=== PATIENT | male | born 1960 | race Caucasian/White ===

== ENCOUNTER 2020-09-17 15:20 | Emergency (ER) | payer SELFPAY | END 2020-09-17 16:32 | disposition left against medical advice (07) | LOC: ER 15:21 | DX: M25.473 Effusion, unspecified ankle (principal); Z53.21 Procedure and treatment not carried out due to patient leaving prior to being seen by health care provider ==

== ENCOUNTER 2022-05-05 07:33 | Emergency (ER) | payer MEDICAID ==
[~2022-05-05] VITALS: Ht 182.9 cm; Wt 71.0 kg
[2022-05-05 09:00] VITALS: BP 145/93
== END 2022-05-05 10:33 | disposition left against medical advice (07) ==
LOC: ER 07:34
DX: M79.604 Pain in right leg (principal); Z53.21 Procedure and treatment not carried out due to patient leaving prior to being seen by health care provider
CPT/HCPCS: 99281; 99291

== ENCOUNTER 2023-10-02 01:48 | Emergency (ER) | payer MEDICAID ==
[~2023-10-02] VITALS: Ht 182.9 cm; Wt 77.3 kg
[2023-10-02] MEDS ORDERED: NAPR-56 PO (02:14)
[2023-10-02] MEDS ORDERED: CYCL-1 PO (02:16)
[2023-10-02] MEDS: naproxen 500mg tablet PO ONE (02:28)
[2023-10-02] MEDS: cyclobenzaprine 10mg tablet PO ONE (02:28)
[2023-10-02 02:29] VITALS: BP 163/101; PULSE 85; RESP 17; TEMP 98.1; O2SAT 98
== END 2023-10-02 02:31 | disposition home or self-care (01) ==
LOC: ER 01:48
DX: K40.90 Unilateral inguinal hernia, without obstruction or gangrene, not specified as recurrent (principal); M54.50 Low back pain, unspecified; I10 Essential (primary) hypertension; Z98.890 Other specified postprocedural states; Z72.89 Other problems related to lifestyle; Z88.8 Allergy status to other drugs, medicaments and biological substances; Z79.899 Other long term (current) drug therapy; Z79.1 Long term (current) use of non-steroidal anti-inflammatories (NSAID)
CPT/HCPCS: 99284

== ENCOUNTER 2024-05-28 06:53 | Day surgery (SDC) | payer MEDICAID ==
[2024-05-23 14:51] LABS: BASOPHILS # (AUTO) 0.1 X10'3 (0-0.2); BASOPHILS % (AUTO) 1.5 % (0-1); EOSINOPHILS # (AUTO) 0.2 X10'3 (0-0.9); EOSINOPHILS % (AUTO) 2.6 % (0-6); LYMPHOCYTES # (AUTO) 2.8 X10'3 (1.1-4.8); LYMPHOCYTES % (AUTO) 39.9 % (21-51); MEAN CORPUSCULAR HEMOGLOBIN 30.3 PG (27.0-31.0); MEAN CORPUSCULAR HGB CONC 33.1 g/dL (33.0-36.5); MEAN CORPUSCULAR VOLUME 91.6 FL (78-98); MEAN PLATELET VOLUME 7.5 FL (7.4-10.4); MONOCYTES # (AUTO) 1.1 X10'3 (0-0.9); MONOCYTES % (AUTO) 15.4 % (2-12); NEUTROPHILS # (AUTO) 2.8 X10'3 (1.8-7.7); NEUTROPHILS % (AUTO) 40.6 % (42-75); PRE OP HEMATOCRIT 47.3 % (42.0-52.0); PRE OP HEMOGLOBIN 15.6 g/dL (14.0-17.9); PRE OP PLATELET COUNT 354 X10'3 (140-440); RED BLOOD COUNT 5.17 X10'6 (4.70-6.10); RED CELL DISTRIBUTION WIDTH 13.7 % (11.5-14.5)
[2024-05-23 15:13] LABS: BLOOD UREA NITROGEN 27 MG/DL (7-18); BUN/CREATININE RATIO 26.7 (10.0-20.0); CHLORIDE 105 MMOL/L (99-107); CREATININE 1.01 MG/DL (0.60-1.10); PRE OP ANION GAP 11 (8-16); PRE OP GLUCOSE 104 MG/DL (70-104); PRE OP POTASSIUM 4.1 MMOL/L (3.4-5.1); PRE OP SODIUM 142 MMOL/L (135-145); TOTAL CARBON DIOXIDE 26.5 MMOL/L (24-32)
[2024-05-23 15:14] LABS: ALBUMIN 3.9 G/DL (3.4-5.0); ALKALINE PHOSPHATASE 79 IU/L (46-116); CALCIUM 9.1 MG/DL (8.5-10.1); PRE OP ALT 23 U/L (30-65); PRE OP AST 15 U/L (10-37); PRE OP BILIRUB, TOTAL 0.4 MG/DL (0.0-1.0); TOTAL PROTEIN 7.7 G/DL (6.4-8.2); eGFR 75 ML/MIN
[2024-05-23 15:18] LABS: PLATELET ESTIMATE NORMAL; TOTAL CELLS COUNTED 100
[~2024-05-28] VITALS: Ht 180.3 cm; Wt 79.2 kg
[2024-05-28] VITALS (15 sets, daily range): BP systolic 125–154; BP diastolic 81–98; PULSE 67–85; RESP 13–18; TEMP 98.5; O2SAT 94–100
[2024-05-28] MEDS: ceFAZolin 2gm in dextrose, iso 50 ML IV ONE (05:30)
[~2024-05-28 06:53] MED LIST: AMLO-708 PO; ASPI81TA52 PO; ATOR20TA66 PO; BENA40TA90 PO; BUPIVAcaine 2.5mg/ml inj 50ml vial (contains preservative) ONE; HYDR12.55; LIDOcaine 1% 30ml preserv. free vial ONE
[2024-05-28] MEDS: famotidine 20mg tablet PO ONE (07:42)
[2024-05-28] MEDS: ringers solution, lacted 1,000 ML IV SCH ×2 (07:43→11:44)
[2024-05-28] MEDS ORDERED: LIDOcaine 1% 30ml preserv. free vial ONE (08:01)
[2024-05-28] MEDS: BUPIVAcaine/PF 2.5 mg/ml (0.25%) 30ml vial IJ ONE (08:09)
[2024-05-28] MEDS ORDERED: sevoflurane 250ml liquid IH ONE (09:04)
[2024-05-28] MEDS: tamsulosin 0.4mg capsule PO STA (09:08)
[2024-05-28] MEDS ORDERED: fentaNYL/PF 50MCG/1 ML 2ML syringe ONE (09:09)
[2024-05-28] MEDS ORDERED: midazolam 1 mg/ML 2ml injection ONE (09:09)
[2024-05-28] MEDS ORDERED: ondansetron/PF 4mg/2ml inj IV PRN (09:10)
[2024-05-28] MEDS ORDERED: morphine 2 MG/ML inj. syringe IV PRN (09:10)
[2024-05-28] MEDS ORDERED: meperidine/PF 25mg/ml syringe IV PRN ×3 (09:10)
[2024-05-28] MEDS ORDERED: morphine 4 MG/ML inj SYRINge IV PRN (09:10)
[2024-05-28] MEDS ORDERED: propofol inj 20 ML IV ONE (09:20)
[2024-05-28] MEDS ORDERED: dexamethasone sod phosphate 4mg/ml inj. ONE (09:20)
[2024-05-28] MEDS ORDERED: rocuronium 10mg/ml inj IV ONE (09:21)
[2024-05-28] MEDS ORDERED: ondansetron/PF 4mg/2ml inj ONE (09:42)
[2024-05-28] MEDS ORDERED: acetaminophen 1,000mg/100ml IV 100 ML IV ONE (09:43)
[2024-05-28] MEDS ORDERED: neostigmine methylsulfate 1 MG/ML 10ml vial ONE (10:11)
[2024-05-28] MEDS ORDERED: glycopyrrolate 0.2mg/ml inj ONE (10:12)
[2024-05-28] MEDS ORDERED: meperidine/PF 100mg/ml syringe IV PRN ×2 (10:26→10:30)
[2024-05-28] MEDS: ketorolac trometh 30MG/ML vial 30 MG/ML VIAL IV ONE (11:45)
[2024-05-28] MEDS: meperidine/PF 100mg/ml syringe IV PRN (11:55)
[2024-05-28] MEDS: HYDROcodone/acetaminophen 5mg/325mg tablet PO PRN (12:46)
== END 2024-05-28 12:49 | disposition home or self-care (01) ==
LOC: PAS 06:53
PROVIDERS: ATTEND Surgery
DX: K40.90 Unilateral inguinal hernia, without obstruction or gangrene, not specified as recurrent (principal); I10 Essential (primary) hypertension; E78.5 Hyperlipidemia, unspecified; Z88.8 Allergy status to other drugs, medicaments and biological substances; Z79.82 Long term (current) use of aspirin; Z90.81 Acquired absence of spleen; Z79.899 Other long term (current) drug therapy; Z98.890 Other specified postprocedural states
CPT/HCPCS: 36415; 49650; 80053; 82948; 85025; 93005; C1781; J0131; J0690; J1100; J1885; J2003; J2175; J2250; J2405; J2704; J2710; J3010; J3490; J7030; J7120; S2900; Z7506; Z7508; Z7512; 85007; A4215; A4618